=== PATIENT | female | born 1930 | race Caucasian/White ===

== ENCOUNTER 2016-10-20 09:01 | Emergency (ER) | payer MEDICARE, OTHER ==
[2016-10-20 09:25] VITALS: BP 147/65
--- NOTE | 2016-10-20 10:02 | UC ---
Skin Complaint HPI - HPI Summary HPI Summary: worsening rash after working in garden in both anticubs and across forehead left AC it has spreading erythema no fevers or chills---pt and pt son is worried about Lyme as his presented in a similar fashion and she is out side all day long - History of Current Complaint Chief Complaint: UCSkin Time Seen by Provider: 10/20/16 10:00 Stated Complaint: RASH Hx Obtained From: Patient Hx Last Menstrual Period: post menopause ?: No Onset/Duration: Gradual Onset, Lasting Days - 7, Worse Since - past 2 left ac Timing: Constant Onset Severity: Mild Current Severity: Moderate Pain Intensity: 5 Pain Scale Used: 0-10 Numeric Location: Diffuse Character: Pruritus, Redness, Painful Aggravating: Nothing Alleviating: Nothing Associated Signs & Symptoms: Positive: Rash Related History: Possible Reaction to: Environmental Exposure - Allergy/Home Medications Allergies/Adverse Reactions: Allergies Allergy/AdvReac Type Severity Reaction Status Date / Time Cephalexin [From Keflex] Allergy Intermediate Rash Verified 10/20/16 10:22 Penicillins Allergy Intermediate Rash Verified 10/20/16 10:22 Ciprofloxacin Allergy See Comment Verified 10/20/16 10:22 Diazepam [From Valium] Allergy Rash Verified 10/20/16 10:22 Ether Allergy Rash Verified 10/20/16 10:22 Simvastatin Allergy Hives Verified 10/20/16 10:22 Home Medications: Home Medications Apixaban* [Eliquis] 2.5 mg 10/20/16 [History] Fluticas/Salmet 45/21 (NF) [Advair HFA 45/21 (NF)] 1 puff INH DAILY 10/20/16 [ History Confirmed 10/20/16] Spironolactone [Aldactone 25 MG-] 1 tab PO DAILY 10/20/16 [History Confirmed 08/07] Review of Systems Constitutional: Negative Skin: Negative - Both AC and accross forehead, Left AC is with increasing Erythema, Rash Eyes: Negative ENT: Negative Respiratory: Negative Cardiovascular: Negative Gastrointestinal: Negative Genitourinary: Negative Motor: Negative Neurovascular: Negative Musculoskeletal: Negative Neurological: Negative Psychological: Negative All Other Systems Reviewed And Are Negative: Yes PMH/Surg Hx/FS Hx/Imm Hx Previously Healthy: No Endocrine History Of: Reports: Diabetes - type 2 Cardiovascular History Of: Reports: Cardiac Disorders - AVR 2007, Hypertension, Congestive Heart Failure Denies: Pacemaker/ICD, Myocardial Infarction Respiratory History Of: Reports: COPD, Asthma Neurological History Of: 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 Psychological History Of: Reports: Depression Other History Of: Anticoagulant Therapy - pradaxa - Surgical History Surgical History: Yes Surgery Procedure, Year, and Place: open heart/valve replacement 2008, hysterectomy 1970, 1951, tonsilectomy 1959, right hand tendon repair - Family History Known Family History: Positive: None Family History: unsure about cardiovascular issues in family lineage - Social History Occupation: Retired Lives: With Family Alcohol Use: None Alcohol Amount: 2 beers a year, per patient Substance Use Type: None Smoking Status (MU): Never Smoked Tobacco - Immunization History Most Recent Tetanus Shot: unknown Physical Exam Triage Information Reviewed: Yes Appearance: Well-Appearing, No Pain Distress, Obese Vital Signs: Initial Vital Signs Temp 98.2 F 10/20/16 09:15 Pulse 64 10/20/16 09:15 Resp 16 10/20/16 09:15 BP 147/65 10/20/16 09:15 Pulse Ox 94 10/20/16 09:15 Vital Signs Reviewed: Yes Eye Exam: Normal Eyes: Positive: Conjunctiva Clear ENT Exam: Normal ENT: Positive: Normal ENT inspection, Hearing grossly normal, Pharynx normal, TMs normal. Negative: Nasal congestion, Nasal drainage, Tonsillar swelling, Tonsillar exudate, Trismus, Muffled/hoarse voice Dental Exam: Normal Neck exam: Normal Neck: Positive: Supple, Nontender, No Lymphadenopathy Respiratory Exam: Normal Respiratory: Positive: Chest non-tender, Lungs clear, Normal breath sounds, No respiratory distress, No accessory muscle use Cardiovascular Exam: Normal Cardiovascular: Positive: RRR, No Murmur, Pulses Normal, Brisk Capillary Refill Musculoskeletal Exam: Normal Musculoskeletal: Positive: Strength Intact, ROM Intact, No Edema Neurological Exam: Normal Neurological: Positive: Alert, Muscle Tone Normal, Fatigued Psychological Exam: Normal Skin: Positive: rashes - erythema across forehead and (R) AC Left AC with cetral dark erythema and speading light erythma circumfuncially Course/Dx - Course Course Of Treatment: topical steroid, antibiodic, lyme titer follow with pcp - Differential Diagnoses - Skin Complaint Differential Diagnoses: Cellulitis, Contact Dermatitis, Local Allergic Reaction - Diagnoses Provider Diagnoses: Contact Dermititis, with secondary infection, hypertension with Diagnosis on treatment Discharge - Discharge Plan Condition: Stable Disposition: HOME Prescriptions: Hydrocortisone Valerate [Westcort] 0.2 % EX BID #60 gm Sulfamethox/Trimethoprim DS* [Bactrim DS 800/160 TAB*] 1 tab PO BID #14 tab Patient Education Materials: Contact Dermatitis (ED), Cellulitis (ED), DASH Eating Plan (ED), Hypertension (ED) Referrals: Damaris Peñaloza MD [Medical Doctor] - 2 Weeks
== END 2016-10-20 10:37 | disposition home or self-care (01) ==
LOC: UCEAST 09:01
DX: L25.9 Unspecified contact dermatitis, unspecified cause (principal); I10 Essential (primary) hypertension; E11.9 Type 2 diabetes mellitus without complications; I50.9 Heart failure, unspecified; Z95.2 Presence of prosthetic heart valve; Z79.01 Long term (current) use of anticoagulants; Z90.710 Acquired absence of both cervix and uterus; E66.9 Obesity, unspecified; Z88.1 Allergy status to other antibiotic agents; Z88.0 Allergy status to penicillin
CPT/HCPCS: 86618; 99212; G0463

== ENCOUNTER 2016-11-13 18:59 | Emergency (ER) | payer MEDICARE, OTHER ==
[2016-11-13 19:19] VITALS: BP 137/59
[2016-11-13 20:14] LABS: Hematocrit 41 % (35-47); Hemoglobin 14.4 g/dl (12.0-16.0); Mean Corpuscular HGB Conc 35 g/dl (31-36); Mean Corpuscular Hemoglobin 32 pg (27-31); Mean Corpuscular Volume 90 fL (80-97); Mean Platelet Volume 10 um3 (7.4-10.4); Red Blood Count 4.55 10^6/ul (4.0-5.4); Red Cell Distribution Width 13 % (10.5-15); White Blood Count 10.3 10^3/ul (3.5-10.8)
[2016-11-13 20:28] LABS: Troponin I 0.01 ng/mL (<0.04)
[2016-11-13 20:33] LABS: Albumin 3.7 g/dL (3.2-5.2); BUN/Creatinine Ratio 23.4 (8-20); EGFR Non-African American 56.7 (>60); Globulin 2.6 g/dL (2-4); Magnesium 1.8 mg/dL (1.9-2.7); Total Bilirubin 0.3 mg/dL (0.2-1.0); Total Protein 6.3 g/dL (6.4-8.9)
--- NOTE | 2016-11-13 21:20 | ED ---
Akila Armstrong SooYoung, scribed for King Damon MD on 11/13/16 at 1947 . Lower Extremity - HPI Summary HPI Summary: An 86 y/o F presents to ED with c/o cramps to LLE to calf and groin area at dinnertime [employer]. Associated sx: diaphoresis, paleness, weakness. Cramping episodes are intermittent. Pt was seen in E with a bulls-eye rash three weeks ago and put on Repetha. Seven days ago, she was active all day long, but then afterwards felt very tired, weak and had pain at her L hip. She spoke to her doctor, who took her off the Repetha. 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 Hx Last Menstrual Period: post menopause Onset/Duration: Resolved Severity Initially: Mild Severity Currently: None Pain Intensity: 0 Pain Scale Used: 0-10 Numeric Timing: Intermittent Location: Is Discrete @ - LLE, groin Associated Signs And Symptoms: Positive: Weakness, Other - pos: diaphoresis, pallor - Allergies/Home Medications Allergies/Adverse Reactions: Allergies Allergy/AdvReac Type Severity Reaction Status Date / Time Cephalexin [From Keflex] Allergy Intermediate Rash Verified 10/20/16 10:22 Penicillins Allergy Intermediate Rash Verified 10/20/16 10:22 Ciprofloxacin Allergy See Comment Verified 10/20/16 10:22 Diazepam [From Valium] Allergy Rash Verified 10/20/16 10:22 Ether Allergy Rash Verified 10/20/16 10:22 Evolocumab [From Repatha] Allergy Rash Verified 11/13/16 19:22 Mouse Protein [From Repatha] Allergy Rash Verified 11/13/16 19:22 Simvastatin Allergy Hives Verified 10/20/16 10:22 PMH/Surg Hx/FS Hx/Imm Hx Previously Healthy: No Endocrine/Hematology History: Reports: Hx Anticoagulant Therapy - pradaxa, Hx Diabetes - type 2 Cardiovascular History: Reports: Hx Angina, Hx Angioplasty, Hx Congestive Heart Failure, Hx Hypercholesterolemia, Hx Hypertension, Hx Valvular Heart Disease Denies: Hx Auto Implanted Cardiovert Defib, Hx Coronary Artery Disease, Hx Myocardial Infarction, Hx Pacemaker/ICD, Other Cardiovascular Problems/Disorders Respiratory History: Reports: Hx Asthma, Hx Chronic Obstructive Pulmonary Disease (COPD), Hx Sleep Apnea History: Reports: Hx Chronic Renal Failure, Other Problems/Disorders - bacteremia d/t uti Musculoskeletal History: Reports: Hx Arthritis Sensory History: Reports: Hx Contacts or Glasses - myopic Opthamlomology History: Reports: Hx Contacts or Glasses - myopic Neurological History: Reports: Hx Headaches Psychiatric History: Reports: Hx Depression - Cancer History Cancer Type, Location and Year: no cancer - Surgical History Surgery Procedure, Year, and Place: open heart/valve replacement 2008, hysterectomy 1969, 1951, tonsilectomy 1959, right hand tendon repair - Immunization History Date of Tetanus Vaccine: unk Date of Influenza Vaccine: unk Infectious Disease History: No Infectious Disease History: Reports: 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 Denies: Hx Clostridium Difficile, Hx Hepatitis, Hx Human Immunodeficiency Virus (HIV), Traveled Outside the [place] in Last 30 Days - Family History Known Family History: Positive: None Family History: unsure about cardiovascular issues in family lineage - Social History Occupation: Retired Lives: Alone Alcohol Use: None Alcohol Amount: 2 beers a year, per patient Hx Substance Use: No Substance Use Type: Reports: None Hx Tobacco Use: No Smoking Status (MU): Never Smoked Tobacco Review of Systems Positive: Skin Diaphoresis, Other - pos: pale coloring Positive: Other - pos: cramping at LLE and groin Positive: Weakness All Other Systems Reviewed And Are Negative: Yes Physical Exam Triage Information Reviewed: Yes Vital Signs On Initial Exam: Initial Vitals Temp Pulse Resp BP Pulse Ox 96.9 F 63 18 137/59 96 11/13/16 19:15 11/13/16 19:15 11/13/16 19:15 11/13/16 19:15 11/13/16 19:15 Vital Signs Reviewed: Yes Appearance: Positive: Well-Appearing, No Pain Distress, Obese Skin: Positive: Warm Head/Face: Positive: Normal Head/Face Inspection Eyes: Positive: ASHELY ENT: Positive: Hearing grossly normal Neck: Positive: Supple Respiratory/Lung Sounds: Positive: Clear to Auscultation, Breath Sounds Present Cardiovascular: Positive: RRR Abdomen Description: Positive: Nontender, Soft. Negative: Distended, Guarding Bowel Sounds: Positive: Present Musculoskeletal: Positive: Strength/ROM Intact Neurological: Positive: Alert, Oriented to Person Place, Time Psychiatric: Positive: Affect/Mood Appropriate - Yusra Coma Scale Coma Scale Total: 15 Diagnostics - Vital Signs Vital Signs Temp Pulse Resp BP Pulse Ox 11/13/16 19:19 97.6 F 62 16 137/59 96 11/13/16 19:15 96.9 F 63 18 137/59 96 - Laboratory Lab Results: Lab Results 11/13/16 11/13/16 11/13/16 Range/Units 20:00 20:00 20:00 WBC 10.3 (3.5-10.8) 10^3/ul RBC 4.55 (4.0-5.4) 10^6/ul Hgb 14.4 (12.0-16.0) g/dl Hct 41 (35-47) % MCV 90 (80-97) fL MCH 32 H (27-31) pg MCHC 35 (31-36) g/dl RDW 13 (10.5-15) % Plt Count 186 (150-450) 10^3/ul MPV 10 (7.4-10.4) um3 Neut % (Auto) 65.7 (38-83) % Lymph % (Auto) 21.2 L (25-47) % [place] % (Auto) 11.4 H (1-9) % Eos % (Auto) 1.0 (0-6) % Baso % (Auto) 0.7 (0-2) % Absolute Neuts (auto) 6.8 (1.5-7.7) 10^3/ul Absolute Lymphs (auto) 2.2 (1.0-4.8) 10^3/ul Absolute Monos (auto) 1.2 H (0-0.8) 10^3/ul Absolute Eos (auto) 0.1 (0-0.6) 10^3/ul Absolute Basos (auto) 0.1 (0-0.2) 10^3/ul Absolute Nucleated RBC 0.01 10^3/ul Nucleated RBC % 0.1 D-Dimer, Quantitative < 200 (Less Than 230) ng/mL Sodium 134 (133-145) mmol/L Potassium 4.0 (3.5-5.0) mmol/L Chloride 101 (101-111) mmol/L Carbon Dioxide 27 (22-32) mmol/L Anion Gap 6 (2-11) mmol/L BUN 22 (6-24) mg/dL Creatinine 0.94 (0.51-0.95) mg/dL Est GFR ( Amer) 73.0 (>60) Est GFR (Non-Af Amer) 56.7 (>60) BUN/Creatinine Ratio 23.4 H (8-20) Glucose 185 H (70-100) mg/dL Calcium 9.0 (8.6-10.3) mg/dL Magnesium 1.8 L (1.9-2.7) mg/dL Total Bilirubin 0.30 (0.2-1.0) mg/dL AST 17 (13-39) U/L ALT 18 (7-52) U/L Alkaline Phosphatase 73 (34-104) U/L Troponin I 0.01 (<0.04) ng/mL Total Protein 6.3 L (6.4-8.9) g/dL Albumin 3.7 (3.2-5.2) g/dL Globulin 2.6 (2-4) g/dL Albumin/Globulin Ratio 1.4 (1-3) Result Diagrams: 11/13/16 20:00 11/13/16 20:00 Lab Statement: Any lab studies that have been ordered have been reviewed, and results considered in the medical decision making process. - EKG 1 EKG Interpretation: sinus rhythm non-specific ST abnormality Re-Evaluation - Re-Evaluation First Eval Change: Improved - results d/w pt Lower Extremity Course/Dx - Course Course Of Treatment: Pt is an 86 y/o F presenting with intermittent LLE cramps radiating to calf and groin. Associated sx: diaphoresis, paleness, weakness. Pt has felt weak and had pain at L hip for past week. Recent PMHx: pt seen at [facility] for bulls-eye rash. Pt given Bactrim in ED. Lab results show elevated glucose and BUN/Creatinine ratio. Ddimer is nml. Trop is negative. UA shows 3+ luekocytes, 2+ WBCs, and squamous epithelia present. EKG shows sinus rhythm and non-specific ST abnormality. D/C home with prescription of Bactrim. - Diagnoses Provider Diagnoses: UTI (urinary tract infection) Discharge - Discharge Plan Condition: Stable Disposition: HOME Prescriptions: Sulfamethox/Trimethoprim DS* [Bactrim DS 800/160 TAB*] 1 tab PO BID #14 tab Patient Education Materials: Urinary Traction Infection in Older Adults (ED), Sulfamethoxazole/Trimethoprim (By mouth) Referrals: Damaris Peñaloza MD [Primary Care Provider] - Additional Instructions: Please return to the ED for new or worsening symptoms. The documentation as recorded by the Akila mills SooYoung accurately reflects the service I personally performed and the decisions made by me, King Damon MD.
[2016-11-13 22:07] LABS: Urine Bacteria Absent (Absent); Urine Bilirubin Negative (Negative); Urine Glucose Negative (Negative); Urine Nitrite Negative (Negative)
[2016-11-13] MEDS ORDERED: Sulfamethox/Trimethoprim DS 800/160* TAB PO ONE (22:36)
== END 2016-11-13 23:29 | disposition home or self-care (01) ==
LOC: ED 18:59
DX: R53.1 Weakness (principal); R61 Generalized hyperhidrosis; N39.0 Urinary tract infection, site not specified
CPT/HCPCS: 36415; 80053; 81003; 81015; 83735; 84484; 85025; 85379; 87086; 93005; 99282; A9270-GY

== ENCOUNTER 2017-08-14 11:10 | Inpatient (IN) | payer MEDICARE, OTHER ==
[2017-08-14 12:06] LABS: Hematocrit 41 % (35-47); Mean Corpuscular HGB Conc 35 g/dl (31-36); Mean Corpuscular Hemoglobin 31 pg (27-31); Mean Corpuscular Volume 90 fL (80-97); Mean Platelet Volume 10 um3 (7.4-10.4); Platelet Count 164 10^3/ul (150-450); Red Cell Distribution Width 13 % (10.5-15); White Blood Count 5.2 10^3/ul (3.5-10.8)
[2017-08-14 12:20] LABS: EGFR Non-African American 60.3 (>60)
[2017-08-14 12:30] LABS: INR 1.01 (0.77-1.02)
[2017-08-14 12:57] LABS: ABS Basophils 0 10^3/ul (0-0.2); ABS Eosinophils 0.1 10^3/ul (0-0.6); ABS Lymphocytes 1.8 10^3/ul (1.0-4.8); ABS Monocytes 0.6 10^3/ul (0-0.8); ABS Neutrophils 2.8 10^3/ul (1.5-7.7); ABS Nucleated RBC 0 10^3/ul; Eosinophil % 1.6 % (0-6); Lymphocyte % 33.7 % (25-47); Nucleated Red Blood Cells % 0.1
[2017-08-14 13:38] LABS: Urine Appearance Clear; Urine Blood 3+ (Negative); Urine Color Yellow; Urine Ketones Negative (Negative); Urine Protein Negative (Negative); Urine Urobilinogen Negative (Negative)
--- NOTE | 2017-08-14 14:05 | RAD ---
Indication: GI bleeding. Single frontal view of the chest performed at 1250 hours was reviewed. Comparison is made with previous exam dated December 08, 2013. No mediastinal shift is noted. Heart is of normal size and configuration. Lung greco appear clear. Patient is status post transsternal thoracotomy. IMPRESSION: NO ACTIVE CARDIOPULMONARY DISEASE IS NOTED.
--- NOTE | 2017-08-14 15:08 | ED ---
Apollo Armstrong Nilda, scribed for Vicki Hummel MD on 08/14/17 at 1212 . GI/ HPI - HPI Summary HPI Summary: This patient is an 87 year old F presenting to [facility] accompanied by daughter with a chief complaint of melena with some red blood in toilet (no clots) this morning. Patient states she also saw some red in her stool yesterday, but thought it was something she ate. The patient rates the pain 0/10 in severity. Symptoms aggravated and alleviated by nothing. Patient denies knowledge of hemorrhoids. Medications include blood thinners (Eliquis, once per day, for years) for Tx of possible TIA. - History of Current Complaint Chief Complaint: EDGIBleed Stated Complaint: BLOOD IN STOOL Hx Obtained From: Patient Hx Last Menstrual Period: post menopause Onset/Duration: Started Hours Ago, Still Present Pain Intensity: 0 Associated Signs and Symptoms: Positive: Other: - melena with some red blood ( no clots); negative known hemorrhoids Aggravating Factor(s): Nothing Alleviating Factor(s): Nothing - Allergy/Home Medications Allergies/Adverse Reactions: Allergies Allergy/AdvReac Type Severity Reaction Status Date / Time cephalexin [From Keflex] Allergy Rash Verified 08/14/17 15:02 ciprofloxacin [From Cipro] Allergy See Comment Verified 08/14/17 15:02 diazepam Allergy Rash Verified 08/14/17 15:02 ether Allergy Rash Verified 08/14/17 15:02 evolocumab Allergy Rash Verified 08/14/17 15:02 [From Repatha SureClick] Penicillins Allergy Rash Verified 08/14/17 15:02 simvastatin Allergy Hives Verified 08/14/17 15:02 Home Medications: Home Medications Apixaban* [Eliquis*] 5 mg PO BID 08/14/17 [History Confirmed 08/14/17] Aspirin EC Low Dose* [Ecotrin EC Low Dose 81 MG*] 81 mg PO DAILY 08/14/17 [ History Confirmed 08/14/17] Diltiazem CD CAP* [Cardizem CD CAP*] 360 mg PO DAILY 08/14/17 [History Confirmed 08/14/17] Spironolactone TAB* [Aldactone TAB*] 25 mg PO DAILY 08/14/17 [History Confirmed 08/14/17] PMH/Surg Hx/FS Hx/Imm Hx Endocrine/Hematology History: Reports: Hx Anticoagulant Therapy - pradaxa, Hx Diabetes - type 2 Cardiovascular History: Reports: Hx Angina, Hx Angioplasty, Hx Congestive Heart Failure, Hx Hypercholesterolemia, Hx Hypertension, Hx Valvular Heart Disease Denies: Hx Auto Implanted Cardiovert Defib, Hx Coronary Artery Disease, Hx Myocardial Infarction, Hx Pacemaker/ICD, Other Cardiovascular Problems/Disorders Respiratory History: Reports: Hx Asthma, Hx Chronic Obstructive Pulmonary Disease (COPD), Hx Sleep Apnea History: Reports: Hx Chronic Renal Failure, Other Problems/Disorders - bacteremia d/t uti Musculoskeletal History: Reports: Hx Arthritis Sensory History: Reports: Hx Contacts or Glasses - myopic Opthamlomology History: Reports: Hx Contacts or Glasses - myopic Neurological History: Reports: Hx Headaches Psychiatric History: Reports: Hx Depression - Cancer History Cancer Type, Location and Year: no cancer - Surgical History Surgery Procedure, Year, and Place: open heart/valve replacement 2008, hysterectomy 1969, 1951, tonsilectomy 1959, right hand tendon repair - Immunization History Date of Tetanus Vaccine: unk Date of Influenza Vaccine: unk Infectious Disease History: No Infectious Disease History: Reports: 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 Denies: Hx Clostridium Difficile, Hx Hepatitis, Hx Human Immunodeficiency Virus (HIV), Traveled Outside the [place] in Last 30 Days - Family History Known Family History: Positive: Diabetes, Other - GI tumor (father) Family History: unsure about cardiovascular issues in family lineage - Social History Alcohol Use: None Alcohol Amount: 2 beers a year, per patient Hx Substance Use: No Substance Use Type: Reports: None Hx Tobacco Use: No Smoking Status (MU): Never Smoked Tobacco Review of Systems Negative: Shortness Of Breath Positive: Other - melena with some red blood (no clots); negative known hemorrhoids All Other Systems Reviewed And Are Negative: Yes Physical Exam - Summary Physical Exam Summary: VITAL SIGNS: Reviewed. GENERAL: Patient is a morbidly obese female who is lying comfortable in the stretcher. Patient is not in any acute respiratory distress. HEAD AND FACE: No signs of trauma. No ecchymosis, hematomas or skull depressions. No sinus tenderness. EYES: PERRLA, EOMI x 2, No injected conjunctiva, no nystagmus. EARS: Hearing grossly intact. Ear canals and tympanic membranes are within normal limits. MOUTH: Oropharynx within normal limits. NECK: Supple, trachea is midline, no adenopathy, no JVD, no carotid bruit, no c- spine tenderness, neck with full ROM. CHEST: Symmetric, no tenderness at palpation LUNGS: Clear to auscultation bilaterally. No wheezing or crackles. CVS: Regular rate and rhythm, S1 and S2 present, no murmurs or gallops appreciated. ABDOMEN: Soft, non-tender. No signs of distention. No rebound no guarding, and no masses palpated. Bowel sounds are normal. RECTAL: Pt has dried blood around rectum area. Dry blood in examining finger with no active bleeding. Pt daughter was present during rectal exam. EXTREMITIES: FROM in all major joints, no edema, no cyanosis or clubbing. NEURO: Alert and oriented x 3. No acute neurological deficits. Speech is normal and follows commands. SKIN: Dry and warm Triage Information Reviewed: Yes Vital Signs On Initial Exam: Initial Vitals Temp Pulse Resp BP Pulse Ox 97.8 F 80 20 150/63 98 08/14/17 11:21 08/14/17 11:21 08/14/17 11:21 08/14/17 11:21 08/14/17 11:21 Vital Signs Reviewed: Yes Diagnostics - Vital Signs Vital Signs Temp Pulse Resp BP Pulse Ox 08/14/17 11:56 74 155/70 95 08/14/17 11:55 74 95 08/14/17 11:21 97.8 F 80 20 150/63 98 - Laboratory Lab Results: Lab Results 08/14/17 08/14/17 Range/Units 11:53 11:53 WBC 5.2 (3.5-10.8) 10^3/ul RBC 4.50 (4.0-5.4) 10^6/ul Hgb 14.0 (12.0-16.0) g/dl Hct 41 (35-47) % MCV 90 (80-97) fL MCH 31 (27-31) pg MCHC 35 (31-36) g/dl RDW 13 (10.5-15) % Plt Count 164 (150-450) 10^3/ul MPV 10 (7.4-10.4) um3 Neut % (Auto) Pending Lymph % (Auto) Pending [place] % (Auto) Pending Eos % (Auto) Pending Baso % (Auto) Pending Absolute Neuts (auto) Pending Absolute Lymphs (auto) Pending Absolute Monos (auto) Pending Absolute Eos (auto) Pending Absolute Basos (auto) Pending Absolute Nucleated RBC Pending Nucleated RBC % Pending Blood Type Pending Antibody Screen Pending Result Diagrams: 08/14/17 11:53 08/14/17 11:53 Lab Statement: Any lab studies that have been ordered have been reviewed, and results considered in the medical decision making process. - Radiology CXR Radiology Interpretation Completed By: Radiologist - CXR, per radiologist, reveals no active cardiopulmonary disease noted. Dr. Hummel has reviewed this radiology report. - EKG 1157 Cardiac Rate: NL EKG Rhythm: Sinus Rhythm - [address] Segment: Non-Specific - on anterior leads EKG Interpretation: T-Wave inversion on lateral leads EKG Comparison: No Significant Change - from 11/13/16 GIGU Course/Dx - Course Assessment/Plan: This patient is an 87 y/o on Eliquis for CVA/TIA who was sent to ED with CC of rectal bleeding. Labs within normal limit. Pt is hemodynamically stable and will be admitted for monitoring. Dx. Lower GI bleed. - Diagnoses Provider Diagnoses: Lower GI bleed - Physician Notifications Discussed Care Of Patient With: Jermaine Mendez - Hospitalist Time Discussed With Above Provider: 13:59 Instructed by Provider To: Admit As Inpatient Discharge - Discharge Plan Condition: Stable Disposition: ADMITTED TO [facility] Referrals: Cole Caicedo, PROFESSIONAL DRIVER [Primary Care Provider] - The documentation as recorded by the Apollo mills Nilda accurately reflects the service I personally performed and the decisions made by Shaheed jarrell Abdul, MD.
[2017-08-14] MEDS ORDERED: Ondansetron INJ* 2 MG/ML VIAL IV PRN (15:09)
[2017-08-14] MEDS ORDERED: Dextrose 50% Syringe 50 ML* 25 GM/50 ML SYRINGE IV PUSH PRN (15:15)
[2017-08-14] MEDS ORDERED: Pantoprazole IV* 40 MG IV ONE (15:19)
[2017-08-14] MEDS ORDERED: Pantoprazole IV* 40 MG ONE (16:29)
[2017-08-14] MEDS: Insulin LISPRO* 1 UNITS UNIT SUBCUT SCH ×2 (17:46→22:28)
[2017-08-14] MEDS: Diltiazem TAB* 30 MG PO SCH (18:08)
[2017-08-14] MEDS: NS 0.9% 1000 ML* 1,000 ML IV SCH (18:08)
[2017-08-14] MEDS: Pantoprazole IV* 80 MG in NS 0.9% 250 ML* 250 ML IVPB SCH (18:09)
[2017-08-14 19:14] LABS: Hematocrit 42 % (35-47); Hemoglobin 14.4 g/dl (12.0-16.0)
--- NOTE | 2017-08-14 20:40 | HP ---
CC: Cole Caicedo NP * HISTORY AND PHYSICAL: DATE OF ADMISSION: 08/14/17 PRIMARY CARE PROVIDER: Cole Caicedo NP CHIEF COMPLAINT: Rectal bleeding. HISTORY OF PRESENT ILLNESS: Ms. Rahman is an 87-year-old female who has a history of what she states are recurrent strokes in one of her eyes (she does not recall which) and has been on Eliquis for this as well as aspirin who presents to the emergency room with rectal bleeding. The patient states that yesterday she had a bowel movement and she thought there was perhaps some blood in it, but she was not sure. Yesterday was essentially a normal day otherwise. She got up at approximately 4 a.m. on the morning of admission which is abnormal for her to have a bowel movement and when she went, she noticed that the stool was quite mushy and it was pitch black in color. She states that the water in the bowl was bright red. The patient spoke with the her neighbor who is a nurse and was told to go to the emergency room for evaluation. The patient states that she does not really have abdominal pain, but she states that something feels abnormal within her abdomen. She denies any worsened lightheadedness or dizziness. She denies any chest pain or shortness of breath. She denies any palpitations. Of note, the patient does have a history of H. pylori approximately 16 to 20 years ago. The only thing that has been different recently is over the last few days, the patient after eating would develop a slight upset stomach. The patient denies any NSAID use. She does take an aspirin on a daily basis and takes only 1 tablet of Eliquis a day instead of the 2 that I prescribed as she does have a slight nosebleed each morning. PAST MEDICAL HISTORY: 1. Type 2 diabetes. 2. Hypertension. 3. Asthma. 4. OA. 5. Depression. 6. History of ocular strokes. PAST SURGICAL HISTORY: 1. Right thumb tendon transplant. 2. Bovine aortic valve replacement. 3. Hysterectomy. 4. Tonsillectomy. 5. D and C. 6. Anchovy procedure of the left wrist. MEDICATIONS: 1. Eliquis 5 mg p.o. b.i.d. (in reality the patient is taking 5 mg daily). 2. Metformin 750 mg p.o. daily. 3. Diltiazem CD 360 mg p.o. daily. 4. Spironolactone 25 mg p.o. daily. 5. Metoprolol XL 50 mg p.o. daily. 6. Aspirin 81 mg p.o. daily. ALLERGIES: 1. KEFLEX. 2. CIPRO. 3. DIAZEPAM. 4. ETHER. 5. REPATHA. 6. PENICILLIN. 7. SIMVASTATIN. FAMILY HISTORY: Mom around the age of 89 of Alzheimer's. Dad also around the age of 89, complications from CVA. SOCIAL HISTORY: The patient is a lifelong nonsmoker. She does not drink alcohol. She worked as a [employer] for [employer]. She is . She has 3 children. Her daughter, Milli is her healthcare proxy. REVIEW OF SYSTEMS: A complete 11-system review of systems is obtained. Pertinent positives and negatives are as per HPI and otherwise negative. PHYSICAL EXAMINATION GENERAL: The patient is a well-developed elderly obese female seen lying in the stretcher, in no acute distress. VITAL SIGNS: Blood pressure 160/75, pulse 74, respirations 15, temperature 97.8 , O2 sat 95% on room air. HEENT: Pupils are equal and round. Extraocular muscles are intact. Oropharynx is clear. Oral mucosa is moist. There is no submandibular, cervical , or subclavicular adenopathy. Thyroid is not enlarged. No thyroid nodules noted. PULMONARY: Lungs are clear to auscultation bilaterally. CARDIAC: Normal S1 and S2. Regular rate and rhythm. There is no lower extremity edema. ABDOMEN: Bowel sounds present. Abdomen is soft, nontender, and nondistended. MUSCULOSKELETAL: There is no cyanosis or clubbing of the digits. There is full active range of motion of all 4 extremities. SKIN: Warm and dry. There are no rashes. NEUROLOGIC: Cranial nerves II through XII are grossly intact. Sensation is intact to light touch throughout. Strength is 5/5 and symmetrical in both upper and lower extremities bilaterally. PSYCH: The patient is alert. She is oriented to x3. Affect appears appropriate. LABORATORY DATA/DIAGNOSTIC STUDIES: WBC 5.2, hemoglobin 14.0, hematocrit 41, and platelets 164,000. INR 1.01. Sodium 135, potassium 3.9, chloride 103, CO2 of 26, BUN 16, creatinine 0.89, glucose 192, calcium 9.2, bilirubin 0.4, AST 16 , ALT 17, alk phos 52, albumin 3.7. Urinalysis reveals specific gravity of 1.010, 3+ blood, trace leukocyte esterase, 1+ bacteria. EKG reveals normal sinus rhythm with ST depressions and T-wave inversions in the lateral leads. This is essentially unchanged from EKG obtained in October 2016. Chest x-ray, no active cardiopulmonary disease. ASSESSMENT AND PLAN: Ms. Rahman is an 87-year-old female who has a history of strokes within 1 of her eyes for which she is on Eliquis and aspirin who presents to the emergency room with complaints of black stool and bright red blood in toilet bowl. 1. GI bleed. The differential includes upper GI bleed versus right-sided colonic bleed given the black stools. The patient's BUN is not elevated, which makes upper GI bleed seem less likely. The patient; however, is on aspirin which could lead to either gastritis or ulceration. I have consulted Dr. Silva from Gastroenterology. He will be seeing the patient today. Followup hemoglobin and hematocrit will be obtained at 7:30 today. The patient's Eliquis and aspirin will be held. She will receive Protonix 80 mg IV x1 followed by Protonix drip. 2. Type 2 diabetes. The patient's metformin will be held currently. She will be placed on a lispro sliding scale a.c., h.s. 3. Hypertension. The patient's blood pressure has been elevated. I am concerned; however, in the setting of GI bleed continuing her long acting medications. I will change the patient to metoprolol tartrate 25 mg twice daily and diltiazem 30 mg p.o. q.6 hours. If her blood pressure becomes more elevated or if her heart rate becomes elevated, her short acting diltiazem should be increased. Once stable she can be resumed on her long acting meditations. 4. History of ocular strokes. The patient's aspirin and Eliquis are going to be held. 5. DVT prophylaxis. According to the Adult Thrombosis Prophylaxis Risk Factor Assessment Guide, the patient has a total risk factor score of 4, making her high risk. SCDs alone will be utilized as DVT prophylaxis given the patient's GI bleed. TIME SPENT: Sixty five minutes were spent admitting this patient. [id number]/[facility] #: [id number] MISTY
--- NOTE | 2017-08-14 22:19 | CONS ---
GASTROENTEROLOGY CONSULT: DATE: 08/14/17 CONSULTING PHYSICIAN: Dr. Gogo Pozo. REASON FOR CONSULT: Black stool at 4 a.m. in a woman on Eliquis, low-dose aspirin for recurring arterial events. HISTORY: This 87-year-old woman, who had coronary bypass in 2008 and atrial fibrillation perioperatively but not since, was in her usual state of health yesterday, 08/13/17. She was quite active. She thought maybe her stool was a little darker on that day, but it was just one and of a normal shape and consistency. She was awakened at 4 a.m. with a urge to go. She actually sat up, had breakfast, read the paper, and passed the stool that was black with the water turning red. In recent years, she has not had any gastrointestinal problems in general. She was treated for Helicobacter pylori in [place] about 20 years ago. She had a screening colonoscopy in 2003 here in [place] and that was normal. Her outpatient meds include Eliquis over the last year, aspirin 81, and no further gastrointestinal meds. She is on metoprolol and diltiazem. She states she has not had any cardiac rhythm disturbances. She sees Dr. Geller about once a year. PAST MEDICAL HISTORY: 1. Morbid obesity. 2. Coronary disease - status post bypass, 2008. 3. Perioperative atrial fibrillation. 4. Bovine aortic valve replacement. 5. Endocarditis, 2012. 6. Status post . 7. Status post hysterectomy. MEDICATIONS: At home, metformin 750, diltiazem 360, metoprolol XL 50, spironolactone 25, Apixaban 5 b.i.d., and aspirin 81. ALLERGIES: PENICILLIN, CEFAZOLIN, DIAZEPAM. SOCIAL HISTORY: She is , lives alone, and has a daughter, Milli Pierson, living nearby. REVIEW OF SYSTEMS: No history of seizures, cerebral CVA, neuropathy, syncope, TB, hemoptysis, pulmonary nodules, hepatitis, jaundice, recent fall, or fracture. PHYSICAL EXAM: She is a morbidly obese woman, in no distress at this time, quite animated, discussing findings with her daughter. HEENT exam shows no icterus. Mucous membranes are normal. She has no adenopathy. Her lungs are clear. Heart sounds are normal. There is a well-healed sternotomy scar. There is an epigastric abdominal scar without any hernia that she says is her from . Abdomen is otherwise obese without focal tenderness. Rectal: Per emergency room doctor showed dark stool, heme positive. LABORATORY DATA: Hemoglobin 14.0, hematocrit 41, MCV 90, platelets 164. BUN 16 , creatinine 0.89, glucose 192. LFTs normal. Albumin 3.7. A1c, November 2016, 7.2. IMPRESSION: This 87-year-old woman on Eliquis and low-dose aspirin presents with gastrointestinal bleeding that seems modest in extent. There have been no hemodynamic signs. Though she describes it as dark, is probably from a lower tract, possibly the proximal right colon. This gets her talking about other relatives with diverticulitis. That does not appear to be the case now. With a history of Helicobacter pylori, however, and the dark stool, it does appear to appropriate to treat empirically for upper gastrointestinal bleeding and perform an upper endoscopy. Unless the bleeding becomes more profuse, prepping her for colonoscopy probably is not worth the burden on her. That question will be reevaluated on an ongoing basis. For the moment, her anticoagulants can be held temporarily. [id number]/[facility] #: [id number] MTDD
[2017-08-14] MEDS: Metoprolol Tartrate TAB* 25 MG PO SCH (22:21)
[2017-08-15] MEDS: Diltiazem TAB* 30 MG PO SCH ×5 (00:59→23:13)
[2017-08-15] MEDS: NS 0.9% 1000 ML* 1,000 ML IV SCH (04:28)
[2017-08-15] MEDS: Pantoprazole IV* 80 MG in NS 0.9% 250 ML* 250 ML IVPB SCH ×2 (04:47→13:37)
[2017-08-15 06:21] LABS: Hematocrit 40 % (35-47); Hemoglobin 13.9 g/dl (12.0-16.0); Mean Corpuscular HGB Conc 34 g/dl (31-36); Mean Corpuscular Hemoglobin 31 pg (27-31); Mean Corpuscular Volume 90 fL (80-97); Mean Platelet Volume 10 um3 (7.4-10.4); Platelet Count 164 10^3/ul (150-450); Red Blood Count 4.47 10^6/ul (4.0-5.4); Red Cell Distribution Width 13 % (10.5-15); White Blood Count 5.6 10^3/ul (3.5-10.8)
[2017-08-15 06:37] LABS: EGFR Non-African American 70.2 (>60)
[2017-08-15] MEDS: Insulin LISPRO* 1 UNITS UNIT SUBCUT SCH ×4 (08:09→23:14)
[2017-08-15] MEDS: Metoprolol Tartrate TAB* 25 MG PO SCH ×2 (08:09→21:28)
[2017-08-15] MEDS ORDERED: fentaNYL* 50 MCG/ML 2 ML VIAL (100 MCG VIAL) ONE (11:56)
[2017-08-15] MEDS ORDERED: Midazolam* 1 MG/ML 10 ML VIAL (10 MG) ONE (11:57)
--- NOTE | 2017-08-15 13:41 | PN ---
Subjective Date of Service: 08/15/17 Interval History: coal color BM. EGD, no e/o active bleeding or other pathology Hgb 13.9 from 14.4 eliquis on hold. Objective Active Medications: Dextrose (D50w Syringe 50 Ml*) 12.5 gm IV PUSH .FOR FS < 60 - SS PRN PRN Reason: FS < 60 Diltiazem HCl (Cardizem Tab*) 30 mg PO Q6HR [facility] Last Admin: 08/15/17 13:24 Dose: 30 mg Insulin Human Lispro (Humalog*) 0 units SUBCUT ACHS [facility] PRN Reason: Protocol Last Admin: 08/15/17 13:09 Dose: Not Given Metoprolol Tartrate (Lopressor Tab*) 25 mg PO BID [facility] Last Admin: 08/15/17 08:09 Dose: 25 mg Ondansetron HCl (Zofran Inj*) 4 mg IV Q6H PRN PRN Reason: NAUSEA Pantoprazole Sodium (Protonix Tab (Nf)) 40 mg PO DAILY [facility] Vital Signs - 8 hr 08/15/17 08/15/17 08/15/17 06:31 07:55 13:04 Temperature 98.0 F 97.5 F Pulse Rate 66 64 Respiratory 20 20 25 Rate Blood Pressure 146/66 154/70 (mmHg) O2 Sat by Pulse 96 95 Oximetry Oxygen Devices in Use Now: None Appearance: NAD, waking up from EGD sedation but answering questions okay. Eyes: No Scleral Icterus, PERRLA Ears/Nose/Mouth/Throat: NL Teeth, Lips, Gums, Mucous Membranes Moist Neck: NL Appearance and Movements; NL JVP Respiratory: Symmetrical Chest Expansion and Respiratory Effort, Clear to Auscultation Cardiovascular: NL Sounds; No Murmurs; No JVD, RRR Abdominal: - - morbidly obese, soft, nontender, nondistended Extremities: No Edema, No Clubbing, Cyanosis Skin: No Rash or Ulcers, No Nodules or Sclerosis Neurological: - - groggy but oriented x3. Nutrition: Taking PO's Result Diagrams: 08/15/17 05:48 08/15/17 05:49 Additional Lab and Data: Laboratory Results - last 24 hr 08/14/17 08/14/17 08/14/17 17:35 19:08 22:23 WBC RBC Hgb 14.4 Hct 42 MCV MCH MCHC RDW Plt Count MPV Sodium Potassium Chloride Carbon Dioxide Anion Gap BUN Creatinine Est GFR ( Amer) Est GFR (Non-Af Amer) BUN/Creatinine Ratio Glucose POC Glucose (mg/dL) 107 H 114 H Calcium 08/15/17 08/15/17 08/15/17 05:48 05:49 07:47 WBC 5.6 RBC 4.47 Hgb 13.9 Hct 40 MCV 90 MCH 31 MCHC 34 RDW 13 Plt Count 164 MPV 10 Sodium 137 Potassium 4.0 Chloride 106 Carbon Dioxide 26 Anion Gap 5 BUN 11 Creatinine 0.78 Est GFR ( Amer) 90.3 Est GFR (Non-Af Amer) 70.2 BUN/Creatinine Ratio 14.1 Glucose 152 H POC Glucose (mg/dL) 143 H Calcium 8.9 08/15/17 12:56 WBC RBC Hgb Hct MCV MCH MCHC RDW Plt Count MPV Sodium Potassium Chloride Carbon Dioxide Anion Gap BUN Creatinine Est GFR ( Amer) Est GFR (Non-Af Amer) BUN/Creatinine Ratio Glucose POC Glucose (mg/dL) 120 H Calcium Microbiology and Other Data: Microbiology 08/14/17 13:26 Urine Urine Culture - Preliminary Escherichia Coli 08/14/17 20:16 Stool Stool Occult Blood (SUSAN) - Final 08/14/17 12:30 Stool Stool Occult Blood (SUSAN) - Final Assess/Plan/Problems-Billing Assessment: 87 yo female PMH NIDDM, HTN, OA, Asthma, bovine AV, ocular CVAs on eliquis and aspiring p/w melena. EGD negative 08/15. - Patient Problems (1) Melena Current Visit: Yes Status: Acute Code(s): K92.1 - MELENA SNOMED Code(s): 1438433 Comment: appreciate GI recs s/p EGD, no e/o of pathology. stop protonix gtt, change to 40mg daily. Per Dr. Silva monitor for another day, possible d/c 08/16 with holding of eliquis until outpatient heme occult negative. suspcion for right sided diverticulosis per GI. (2) CVA (cerebral vascular accident) Current Visit: Yes Status: Acute Code(s): I63.9 - CEREBRAL INFARCTION, UNSPECIFIED SNOMED Code(s): 588626908 Comment: holding eliquis per GI, will restart aspirin reports graying out of vision for "a few sec" many years ago. MRI 07/22/07 mild chonic microvascular changes. Evaluated by Shayy Tabor Billposter who told her evidence of abnormality on eye exam. Was started on Pradax. 2nd event where 1/2 of vision for few seconds of goldsmith out. (3) Hypertension Current Visit: No Status: Chronic Code(s): I10 - ESSENTIAL (PRIMARY) HYPERTENSION SNOMED Code(s): 83891471 Comment: metoprolol 25mg bid from 50mg daily diltiazem 30 q6 from 360mg daily. home spironolactone held. in setting of GIB. (4) Type 2 diabetes mellitus Current Visit: No Status: Chronic Comment: SSI, poct qachs hold metformin Status and Disposition: medicine,change to inpatient as has not gotten GI clearance for d/c.
--- NOTE | 2017-08-16 01:59 | PRO ---
DATE: 08/15/17 - ROOM #[id number] REFERRING PRACTITIONERS: Cole Caicedo, CANDIS, Gogo Pozo, * PROCEDURE: Upper gastrointestinal endoscopy and gastric biopsy for CLOtest. INDICATIONS: This 87-year-old woman came in passing dark stool and today said that since her emergency room consultation, she passed a lot of tar late yesterday evening. Tar was her spontaneous word. She has been taking Eliquis and baby aspirin. She was treated for H. pylori probably 15 years ago while living in [place]. Overnight, she has had stable vital signs and at this time has no abdominal distress. Her last bowel movement was 18 hours ago. ENDOSCOPIST: Dr. Silva. MEDICATIONS: Midazolam 5, fentanyl 50. FINDINGS: She is a morbidly obese older woman, in no overt distress. Her abdomen is rotund. EGD: Larynx - narrow and cords not seen. Esophagus - easily entered and the mucosa is normal in the upper, mid and lower esophagus with a small hiatal hernia. Her gag reflex was very active and getting stable views was difficult, so repeated passes were made and views were therefore complete. Stomach - generally normal mucosa in the cardia, fundus, body, and antrum. No blood or erosions or significant scarring seen. A CLOtest taken in mid gastric body. Duodenum - the pylorus, bulb, and second through fourth portions appear normal and again several passes were done and views seemed quite satisfactory. IMPRESSION: 1. Small hiatal hernia. 2. Gastrointestinal bleeding - appears to be slowing down and there are no findings on this upper endoscopy indicating a source. It would appear appropriate to continue to hold the Eliquis, give the low-dose aspirin, and to have her follow up with her primary in 7 to 10 days and if she reverts to heme- negative status, restart the Eliquis at that time. The most likely source of bleeding would be the proximal colon from diverticulosis. [id number]/[facility] #: [id number] [facility]
[2017-08-16] MEDS: Diltiazem TAB* 30 MG PO SCH (05:26)
[2017-08-16 08:12] VITALS: BP 136/62
[2017-08-16] MEDS ORDERED: CMC:Pantoprazole TAB (NF) 40 MG TAB PO SCH (09:00)
[2017-08-16] MEDS ORDERED: Aspirin Low Dose CHEW TAB* 81 MG PO SCH (09:00)
[2017-08-16] MEDS: Metoprolol Tartrate TAB* 25 MG PO SCH (09:16)
[2017-08-16] MEDS: Insulin LISPRO* 1 UNITS UNIT SUBCUT SCH (09:16)
[2017-08-16 09:30] LABS: Hematocrit 43 % (35-47); Hemoglobin 14.7 g/dl (12.0-16.0); Mean Corpuscular HGB Conc 34 g/dl (31-36); Mean Corpuscular Hemoglobin 31 pg (27-31); Mean Corpuscular Volume 91 fL (80-97); Mean Platelet Volume 10 um3 (7.4-10.4); Platelet Count 197 10^3/ul (150-450); Red Blood Count 4.72 10^6/ul (4.0-5.4); Red Cell Distribution Width 13 % (10.5-15); White Blood Count 7.8 10^3/ul (3.5-10.8)
[2017-08-16 09:47] LABS: ABS Basophils 0.1 10^3/ul (0-0.2); ABS Eosinophils 0.2 10^3/ul (0-0.6); ABS Lymphocytes 2.8 10^3/ul (1.0-4.8); ABS Monocytes 0.7 10^3/ul (0-0.8); ABS Neutrophils 4.1 10^3/ul (1.5-7.7); ABS Nucleated RBC 0 10^3/ul; Eosinophil % 2.2 % (0-6); Lymphocyte % 35.7 % (25-47); Nucleated Red Blood Cells % 0
--- NOTE | 2017-08-16 23:28 | DS ---
DISCHARGE SUMMARY: DATE OF ADMISSION: 08/14/17 DATE OF DISCHARGE: 08/16/17 MAIN PROVIDER: Gogo Pozo DO PRIMARY CARE PROVIDER: CANDIS Gonzalez ATTENDING PHYSICIAN: Roman Rodriguez MD CONSULTING TECHNICAL SERVICES MANAGER: Earl Silva MD CHIEF COMPLAINT: Dark tarry stools. PRINCIPAL DIAGNOSIS: Melena; negative EGD study. Suspected right-sided diverticulosis versus small bowel arteriovenous malformation. HISTORY OF PRESENT ILLNESS AND HOSPITAL COURSE: Mr. Rahman is an 87-year-old female, past medical history of non-insulin dependent diabetes mellitus, hypertension, asthma, osteoarthritis, depression, ocular strokes for which she takes Eliquis but at only 5 mg daily given almost daily nose bleeds. At 4 a.m. on the morning of admission, she had pitch black almost tar-like stool with the rest of the water in the bowl being bright red. She denied any abdominal pain. She does have an old history of H. pylori approximately 1998. She denied any NSAID use, does take a daily aspirin and 5 mg Eliquis daily instead of b.i.d. for the history of ocular strokes. She was admitted, had a GI consult and an EGD was arranged on hospital day #2. It was without evidence of pathology. There was CLOtest done for H. pylori testing. She was without bowel movements since night of admission 10 p.m., which was again dark, tarry in color. Her hemoglobins have been stable at 14.0 on admission, 13.9 on the day prior to discharge. CBC pending on the day of discharge. She has been without bowel movements for the last 32 hours. She states she was advised by Dr. Silva to stop her Eliquis until consult with Cole Caicedo, NAN PCP as an outpatient and get stool tested again for evidence of bleeding. Aspirin 81 mg was resumed. She was also started on Protonix drip during the hospital, transitioned to [address] Silva suspects right-sided diverticulosis. She should follow with him in the office. Other etiologies could include a small bowel AVM and video capsule endoscopy could be considered as well. DISCHARGE MEDICATIONS: Include: 1. Aspirin 81 mg daily. 2. Diltiazem 360 mg daily. 3. Metformin 750 mg p.o. daily. 4. Metoprolol succinate 50 mg p.o. daily. 5. Spironolactone 25 mg p.o. daily. 6. Protonix 40 mg p.o. daily (new). DISCHARGE DIET: Heart healthy, carbohydrate consistent. ACTIVITY LEVEL: Without restriction. FOLLOWUP: Please follow up with Dr. Earl Silva within 2 weeks and Cole Caicedo NP, primary care provider, within 7 days to follow up and also to get for evidence of continued melena or hematochezia and a decision whether or not to restart Eliquis. She could also follow up with a neurologist who she reports never having seen given the history of these ocular strokes, question amaurosis fugax about whether or not she needs to be on the Eliquis and if so what the proper dosing as given her continued daily nose bleeds, though they did not sound very . TIME SPENT: Time spent on discharge was 35 minutes. [id number]/[facility] #: [id number] MTDD
== END 2017-08-16 10:05 | disposition home or self-care (01) | DRG 379 ==
LOC: ED 11:10 → MED 15:02 → OBSVTOIN 08-15 09:00
PROVIDERS: ADMIT Hospitalist; ATTEND Internal Medicine
PROC: 0DB68ZX Excision of Stomach, Via Natural or Artificial Opening Endoscopic, Diagnostic (ICD-10-PCS; principal; 2017-08-15)
DX: K57.91 Diverticulosis of intestine, part unspecified, without perforation or abscess with bleeding (principal); E11.9 Type 2 diabetes mellitus without complications; K55.20 Angiodysplasia of colon without hemorrhage; I10 Essential (primary) hypertension; J45.909 Unspecified asthma, uncomplicated; G47.33 Obstructive sleep apnea (adult) (pediatric); F32.9 Major depressive disorder, single episode, unspecified; Z87.898 Personal history of other specified conditions; Z95.3 Presence of xenogenic heart valve; Z79.01 Long term (current) use of anticoagulants; Z79.82 Long term (current) use of aspirin; Z79.899 Other long term (current) drug therapy; Z79.84 Long term (current) use of oral hypoglycemic drugs; Z88.1 Allergy status to other antibiotic agents; Z88.0 Allergy status to penicillin; Z88.8 Allergy status to other drugs, medicaments and biological substances; Z82.3 Family history of stroke
CPT/HCPCS: 36415; 71045; 80048; 80053; 81003; 81015; 82270; 85014; 85018; 85025; 85027; 85610; 85730; 86850; 86900; 86901; 87077; 87086; 87186; 93005; 99156; 99157; 99285; A9270-GY; G0378; J2250; J3010

== ENCOUNTER 2017-09-25 13:35 | Emergency (ER) | payer MEDICARE, OTHER ==
--- NOTE | 2017-09-25 14:12 | UC ---
Respiratory Complaint HPI - HPI Summary HPI Summary: 87 y/o female presents to the urgent care c/o productive cough, mild SOB, wheezing since Wednesday09/21/2017. Pt reports she is producing a green phlegm at times and w/ low grade fever yesterday. Pt has been using her albuterol inhaler 3/day. Pt feels she is loosing her voice and feels malaise at times. Pt denies chest pain, abdominal pain, N/V/D - History of Current Complaint Chief Complaint: UCRespiratory Stated Complaint: URI Time Seen by Provider: 09/25/17 14:09 Hx Obtained From: Patient, Family/[place] [employer] - daughter Hx Last Menstrual Period: post menopause ?: No Onset/Duration: Gradual Onset, Lasting Days - 5 days, Worse Since - yesterday Timing: Intermittent Episodes Severity Initially: Mild Severity Currently: Moderate Pain Intensity: 6 Pain Scale Used: 0-10 Numeric Character: Cough: Productive, Sputum Description: - green Aggravating Factors: Recumbent Position Alleviating Factors: Bronchodilator, OTC Meds Associated Signs And Symptoms: Positive: Dyspnea, Fever - low grade fever, Wheezing, URI, Nasal Congestion - Risk Factors Pulmonary Embolism Risk Factors: Negative Cardiac Risk Factors: Hypertension, Diabetes, Elevated Lipids Pseudomonas Risk Factors: Negative Tuberculosis Risk Factors: Negative - Allergies/Home Medications Allergies/Adverse Reactions: Allergies Allergy/AdvReac Type Severity Reaction Status Date / Time cephalexin [From Keflex] Allergy Rash Verified 09/25/17 13:51 ciprofloxacin [From Cipro] Allergy See Comment Verified 09/25/17 13:51 diazepam Allergy Rash Verified 09/25/17 13:51 ether Allergy Rash Verified 09/25/17 13:51 evolocumab Allergy Rash Verified 09/25/17 13:51 [From Repatha SureClick] Penicillins Allergy Rash Verified 09/25/17 13:51 simvastatin Allergy Hives Verified 09/25/17 13:51 Home Medications: Home Medications Multivitamin [Multivitamins] 1 cap PO 09/25/17 [History] PMH/Surg Hx/FS Hx/Imm Hx Previously Healthy: Yes Endocrine History: Diabetes, Dyslipidemia Cardiovascular History: Hypertension, Atrial Fibrillation Respiratory History: Asthma Other History Of: Anticoagulant Therapy - pradaxa - Surgical History Surgical History: Yes Surgery Procedure, Year, and Place: open heart/valve replacement 2009, hysterectomy 1970, 1951, tonsilectomy 1959, right hand tendon repair - Family History Known Family History: Positive: None, Diabetes Family History: GI tumor (father) - Social History Occupation: Retired Lives: With Family Alcohol Use: None Alcohol Amount: 2 beers a year, per patient Substance Use Type: None Smoking Status (MU): Never Smoked Tobacco - Immunization History Most Recent Tetanus Shot: unknown Vaccination Up to Date: Yes Review of Systems Constitutional: Fever, Chills, Fatigue Skin: Negative Eyes: Negative ENT: Nasal Discharge, Sinus Congestion Respiratory: Shortness Of Breath, Cough - productive freen phlegm, Other - wheezing Cardiovascular: Negative Gastrointestinal: Negative Genitourinary: Negative Motor: Negative Neurovascular: Negative Musculoskeletal: Negative Neurological: Negative Psychological: Negative Is Patient Immunocompromised?: No All Other Systems Reviewed And Are Negative: Yes Physical Exam - Summary Physical Exam Summary: Vital Signs Reviewed: Yes General: well developed, well nourished male sitting in the examining table w/o any apparent distress Eyes: Positive: Conjunctiva Clear - PERRLA, EOMI, fundi grossly normal ENT: Positive: Normal ENT inspection, Hearing grossly normal, Pharynx normal, Nasal congestion - edematous and erythematous nasal mucosa, Nasal drainage - yellowish drainage, TMs normal. Negative: Tonsillar swelling, Tonsillar exudate Neck: Positive: Supple, Nontender, No Lymphadenopathy Respiratory: no orthopnea or dyspnea. Able to speak in full sentences, no retractions or accessory muscle use, no tripod position, stridor, or head bobbing. Positive breath sounds bilaterally, scattered wheezing and rhonchi, no crackles, rales. Cardiovascular: Positive: RRR, No Murmur, Pulses Normal, Brisk Capillary Refill Abdomen Description: Positive: Nontender, No Organomegaly, Soft. Negative: CVA Tenderness (R), CVA Tenderness (L) Bowel Sounds: Positive: Present Musculoskeletal Exam: Normal Musculoskeletal: Positive: Strength Intact, ROM Intact, No Edema Neurological Exam: Normal Psychological Exam: Normal Skin Exam: Normal Triage Information Reviewed: Yes Vital Signs: Initial Vital Signs Temp 97.3 F 09/25/17 13:46 Pulse 70 09/25/17 13:46 Resp 18 09/25/17 13:46 BP 00/00 09/25/17 13:46 Pulse Ox 95 09/25/17 13:46 Diagnostic Evaluation - Laboratory O2 Sat by Pulse Oximetry: 95 Respiratory Course/Dx - Course Course Of Treatment: 87 y/o female presents to the urgent care c/o productive cough, mild SOB, wheezing since Wednesday09/21/2017. Pt reports she is producing a green phlegm at times and w/ low grade fever yesterday. Pt has been using her albuterol inhaler 3/day. Pt feels she is loosing her voice and feels malaise at times. Pt denies chest pain, abdominal pain, N/V/D. Hx obtained. Pt w/ bilaterally, scattered wheezing and rhonchi, no crackles, rales on examiantion. Chest S-ray ordered to r/o pneumonia: impression: Findings of COPD , and linear subsegmental atelectasis or scaring at the LF lung base that has not changed when compared w/ prior Chest -Xray. O2Sat: 95%. Pt given Prednisone PO and Duoneb Tx. pt tolerated well Tx and fell better, only RT posterior lung wheezing, O2Sat still the same. Pt Rx Doxycycline PO, Tessalon tabs PO, Duoneb Tx, and Prednisone Taper Doce. Pt given Incentive Spirometer and educated how to use to improve lung function. Daughter advised to f/u w/ PCP in 2 days to see if symptoms were improving. However is symptoms worsen to immediately take her to the ER for further treatment. Pt and daughter understood and agreed w/ plan of care. Pt left the clinic hemodynamically stable, A&OX3 and ambulating. - Differential Dx/Diagnosis Differential Diagnosis/HQI/PQRI: Asthma, Bronchitis, Exacerbation Of COPD, Influenza, Lower Resp Infection, Sinusitis Provider Diagnoses: 1- Acute asthma exacerbation due to bronchitis. 2-Wheezing Discharge - Sign-Out/Discharge Documenting (check all that apply): Discharge - Discharge Plan Condition: Stable Disposition: HOME Prescriptions: Albuterol/Ipratropium NEB.CHRISTIE* [Duoneb (Albuterol 2.5 MG/Ipratropium 0.5 MG)] 1 neb INH Q4H PRN #1 donna PRN Reason: Wheezing Benzonatate CAP* [Tessalon 100 MG CAP*] 100 mg PO TID PRN #21 cap PRN Reason: Cough DOXYcycline CAP(*) [DOXYcycline 100MG CAP(*)] 100 mg PO BID #20 cap predniSONE TAB* [Deltasone TAB*] 20 mg PO DAILY #8 tab Patient Education Materials: Acute Bronchitis (ED), COPD (Chronic Obstructive Pulmonary Disease) (ED), Wheezing (ED) Referrals: Cole Caicedo [employer] [Primary Care Provider] - 3 Days Additional Instructions: 1-Please take full course of antibiotic to avoid resistance. 2-Take Tessalon PO tabs as directed and do the Duoneb treatments as directed to alleviate wheezing and cough. Increase fluid intake, rest and eat well. 3- If symptoms do not improve or worsen or your develop SOB with fever and severe wheezing please go immediately to the ER further evaluation and treatment. 4- F/u with your PCP in 2-3 days for further management on your Asthma and COPD - Billing Disposition and Condition Condition: STABLE Disposition: HOME
[2017-09-25] MEDS ORDERED: predniSONE TAB* 20 MG PO ONE (14:23)
[2017-09-25] MEDS ORDERED: Albuterol/Ipratropium NEB.SOL* Albuterol 2.5 MG/Ipratropium 0.5 MG 3 ML INH ONE (14:23)
--- NOTE | 2017-09-25 14:48 | RAD ---
INDICATION: Productive cough, shortness of breath and wheezing. COMPARISON: Comparison is made with a prior chest x-ray study from August 14, 2017. TECHNIQUE: Dual-energy PA and lateral views of the chest were obtained. FINDINGS: The patient is status post sternotomy and cardiac valve replacement surgery. The heart is within normal limits in size. The lungs are hyperinflated with flattening of the diaphragms consistent with chronic obstructive pulmonary disease. There are linear densities at the left lung base unchanged from the prior exam suggestive of subsegmental atelectasis or scarring. The lungs are otherwise clear. No pleural effusion is seen. IMPRESSION: FINDINGS SUGGESTIVE OF COPD, NO EVIDENCE FOR ACUTE FINDING.
[2017-09-25 15:44] VITALS: BP 138/68
== END 2017-09-25 15:48 | disposition home or self-care (01) ==
LOC: UCEAST 13:35
DX: R05 Cough (principal); R06.02 Shortness of breath; R50.9 Fever, unspecified; R53.81 Other malaise; R09.81 Nasal congestion; J45.909 Unspecified asthma, uncomplicated; E11.9 Type 2 diabetes mellitus without complications; Z79.84 Long term (current) use of oral hypoglycemic drugs; I48.91 Unspecified atrial fibrillation; Z79.01 Long term (current) use of anticoagulants; Z95.2 Presence of prosthetic heart valve; E78.5 Hyperlipidemia, unspecified; I10 Essential (primary) hypertension; Z88.1 Allergy status to other antibiotic agents; Z88.0 Allergy status to penicillin; Z88.8 Allergy status to other drugs, medicaments and biological substances
CPT/HCPCS: 71046; 99213; A9270-GY; G0463; J7512